=== PATIENT | female | born 2000 | race Caucasian/White ===

== ENCOUNTER → 2021-12-04 | Outpatient (CLI) | payer BC ==
--- NOTE | 2021-12-06 17:52 | RAD ---
Lateral radiograph of the cervical spine to include flexion and extension views 12/04/2021 CLINICAL HISTORY: Tension headache. Neck pain. Neutral, flexion and extension lateral digital radiographs of the cervical spine were obtained. There is slight reversal of the normal cervical lordosis. No fracture or subluxation of the cervical verte brae is seen. No prevertebral soft tissue swelling is seen. The alignment of the cervical vertebrae i s maintained on the flexion and extension radiographs. IMPRESSION: No acute osseous abnormality is seen. The alignment of the cervical vertebrae is maintain ed on the flexion and extension radiographs. Electronically signed by: Nilesh Mcguire MD (12/06/2021 5:50 PM) [id number]
== END ==
LOC: RAD 15:04
PROVIDERS: ATTEND Internal Medicine
DX: G44.209 Tension-type headache, unspecified, not intractable (principal); M54.2 Cervicalgia
CPT/HCPCS: 72040; 72052